=== PATIENT | male | born 1995 | race Caucasian/White ===

== ENCOUNTER 2021-10-16 10:52 | Inpatient (IN) | payer OTHER ==
[~2021-10-16] VITALS: Ht 175.3 cm; Wt 71.6 kg
[2021-10-16 11:47] LABS: HEMATOCRIT 44.8 % (42.0-52.0); HEMOGLOBIN 15.5 g/dl (13.5-17.5); MEAN CORPUSCULAR HEMOGLOBIN 31.2 pg (27.0-33.0); MEAN CORPUSCULAR HGB CONC 34.6 g/dl (32.0-36.5); MEAN CORPUSCULAR VOLUME 90.1 fl (80.0-96.0); PLATELET COUNT, AUTOMATED 227 10^3/uL (150-450); RED BLOOD COUNT 4.97 10^6/uL (4.30-6.10); WHITE BLOOD COUNT 5.2 10^3/uL (4.0-10.0)
[2021-10-16 12:23] LABS: RSV AMPLIFICATION NEGATIVE (NEGATIVE)
[2021-10-16 12:30] LABS: ALBUMIN 4.3 GM/DL (3.2-5.2); ALT/SGPT 20 U/L (12-78); BILIRUBIN,DIRECT 0.2 MG/DL (0.0-0.2); BILIRUBIN,TOTAL 0.9 MG/DL (0.2-1.0); BLOOD UREA NITROGEN 14 MG/DL (7-18); CALCIUM LEVEL 9.3 MG/DL (8.5-10.1); CARBON DIOXIDE LEVEL 33 MEQ/L (21-32); CHLORIDE LEVEL 105 MEQ/L (98-107); CREATININE FOR GFR 1.16 MG/DL (0.70-1.30); ETHYL ALCOHOL (ETHANOL) < 0.003 % (0.000-0.010); GLOMERULAR FILTRATION RATE > 60.0 (>60); GLUCOSE, FASTING 98 MG/DL (70-100); POTASSIUM SERUM 4.4 MEQ/L (3.5-5.1); SALICYLATE LEVEL < 1.7 MG/DL (5.0-30.0); SODIUM LEVEL 139 MEQ/L (136-145); TOTAL PROTEIN 7.5 GM/DL (6.4-8.2)
[2021-10-16 12:31] LABS: ACETAMINOPHEN LEVEL < 2.0 UG/ML (10.0-30.0)
[2021-10-16 14:04] LABS: AMPHETAMINES LEVEL URINE NEGATIVE (NEGATIVE); BARBITURATES URINE NEGATIVE (NEGATIVE); BENZODIAZEPINES URINE NEGATIVE (NEGATIVE); CANNABINOIDS URINE NEGATIVE (NEGATIVE); COCAINE METABOLITE URINE NEGATIVE (NEGATIVE); METHADONE URINE NEGATIVE (NEGATIVE); OPIATES URINE NEGATIVE (NEGATIVE); PHENCYCLIDINE URINE NEGATIVE (NEGATIVE)
[2021-10-16] MEDS ORDERED: HOME MED LIST COMPLETE! XX SCH (14:15)
[2021-10-16] MEDS ORDERED: MOM 30ML SUSPENSION UDC PO PRN (14:25)
[2021-10-16] MEDS ORDERED: MAALOX 30 ML SUSP *UDC PO PRN (14:25)
[2021-10-16] MEDS ORDERED: IBUPROFEN 400MG TAB PO PRN (14:25)
[2021-10-16 16:07] VITALS: BP 138/87
[2021-10-17 06:00] VITALS: BP 140/65
[2021-10-17 18:34] VITALS: BP 148/88
[2021-10-17] MEDS: SERTRALINE HCL 25 MG TABLET PO SCH (19:07)
[2021-10-17] MEDS: traZODone 50 MG TAB PO PRN (21:30)
[2021-10-18 06:00] VITALS: BP 110/65
[2021-10-18] MEDS: SERTRALINE HCL 25 MG TABLET PO SCH (08:18)
[2021-10-18 16:29] VITALS: BP 131/70
[2021-10-18] MEDS: traZODone 50 MG TAB PO PRN (20:59)
[2021-10-19 06:32] VITALS: BP 109/61
[2021-10-19] MEDS: SERTRALINE HCL 25 MG TABLET PO SCH (08:40)
[2021-10-19 16:19] VITALS: BP 133/60
[2021-10-19] MEDS: traZODone 50 MG TAB PO PRN (19:42)
[2021-10-20 06:20] VITALS: BP 116/56
[2021-10-20] MEDS: SERTRALINE HCL 25 MG TABLET PO SCH (07:57)
[2021-10-20 16:12] VITALS: BP 130/63
[2021-10-20] MEDS: traZODone 50 MG TAB PO PRN (20:29)
[2021-10-21 06:23] VITALS: BP 136/60
[2021-10-21] MEDS: SERTRALINE HCL 25 MG TABLET PO SCH (08:41)
[2021-10-21] MEDS ORDERED: SERT25TA21 PO (09:05)
[2021-10-21] MEDS ORDERED: TRAZ-252 PO (09:05)
== END 2021-10-21 11:41 | disposition home or self-care (01) | DRG 751 ==
LOC: M ED 10:52 → M ED INP 14:25 → M PSY 15:40
PROVIDERS: ADMIT Psychiatry & Neurology Psychiatry; ATTEND Psychiatry & Neurology Psychiatry
DX: F32.1 Major depressive disorder, single episode, moderate (principal); F10.10 Alcohol abuse, uncomplicated; F17.290 Nicotine dependence, other tobacco product, uncomplicated; F43.22 Adjustment disorder with anxiety; Z91.51 Personal history of suicidal behavior; Z20.822 Contact with and (suspected) exposure to COVID-19; R45.851 Suicidal ideations

== ENCOUNTER 2022-01-22 08:04 | Emergency (ER) | payer SELFPAY ==
[~2022-01-22] VITALS: Ht 175.3 cm; Wt 72.1 kg
[~2022-01-22 08:04] MED LIST: SERT25TA21 PO; TRAZ-252 PO
[2022-01-22 08:05] VITALS: BP 151/88
[2022-01-22] MEDS ORDERED: SERT50TA29 (08:10)
== END 2022-01-22 11:04 | disposition left against medical advice (07) ==
LOC: M ED 08:04
DX: Z53.21 Procedure and treatment not carried out due to patient leaving prior to being seen by health care provider (principal)